=== PATIENT | female | born 2000 | race Caucasian/White ===

== ENCOUNTER 2020-05-02 03:18 | Emergency (ER) | payer OTHER, SELFPAY ==
--- NOTE | ~2020-05-02 | CT_ITS ---
EXAMINATION: CT abdomen pelvis w con DATE: 05/02/2020 04:27 INDICATION: Pelvic pain TECHNIQUE: Computed tomography (CT) of the abdomen and pelvis was performed with 100 cc Omnipaque 350 intravenous contrast. The dose-length product was 220.62 mGy-cm. Automated exposure control and iter ative reconstruction technique were employed. COMPARISON: None. FINDINGS: Lung bases unremarkable. No significant pleural or pericardial effusion. Heart size normal. Subtle areas of hypoperfusion upper pole of the kidneys. There is diffuse thickening of the bladder w all. The liver, spleen, pancreas, adrenal glands are unremarkable. Gallbladder is present. Nonobstructive bowel gas pattern. No free air or free fluid. IMPRESSION: 1. Subtle hypoperfusion of the upper pole of the kidneys, nonspecific although pyelonephritis should be considered in the appropriate clinical setting. 2: Bladder wall thickening which may be due to underdistention or cystitis. Correlate with urinalysi s. Reviewed, dictated and finalized at [facility]. IMPRESSION: 1. Subtle hypoperfusion of the upper pole of the kidneys, nonspecific although pyelonephritis should be considered in the appropriate clinical setting. 2: Bladder wall thickening which may be due to underdistention or cystitis. Co rrelate with urinalysis.
--- NOTE | 2020-05-02 03:22 | ED.FEMALEGU ---
HPI - Female Genitourinary General Chief complaint: ANIMAL SHELTER WORKER Stated complaint: Severe Vaginal Pain Time Seen by Provider: 05/02/20 03:22 History of Present Illness HPI Narrative: Severe vaginal pain for the past 2 hours. Feels like cramping. She reports that she first started having this type of symptom last week. At that time the pain felt like it was on the outside of the vagina and radiated down the inner thigh. She reports that it was similar to pain that she had from pelvic contusions related t horseback riding. She was seen in the ED and placed on flagy. She then saw her OB a few hour later and was started on vaginal valium. After starting this she began having pain in the vagina. She was switched to cyclobenzaprine, which seemed to help, but now she is having this pain, which feels different. Prior to all of this she was having right foot pain, which she was prescribed gabapentin for, but had not started. Related Data Home Medications Medication Instructions Recorded Confirmed diazepam 05/02/20 gabapentin 05/02/20 hydrocodone-acetaminophen 05/02/20 05/02/20 levonorgestrel-ethinyl estrad 05/02/20 metronidazole 05/02/20 Allergies Allergy/AdvReac Type Severity Reaction Status Date / Time metoclopramide Allergy Mild Shakiness Verified 05/02/20 03:30 codeine AdvReac Nausea and Verified 05/02/20 03:34 Vomiting Review of Systems Review of Systems: All systems reviewed & are unremarkable except as noted in HPI and below Constitutional: Constitutional: Denies fever(s) Cardiovascular: Cardiovascular: Denies chest pain Respiratory: Respiratory: Denies dyspnea Genitourinary: Genitourinary: Reports pelvic pain and Denies vaginal discharge Neurologic: Denies dizziness and Denies weakness [facility] Past Medical History Medical History (Updated 05/02/20 @ 06:17 by Alan Brady MD) Brain cancer Exam Const: General: healthy appearing, no acute distress and alert Orientation/consciousness: patient oriented x3 HENMT: Head: normal to inspection Neck: Neck: normal visual inspection and no lymphadenopathy Chest: Chest palpation & inspection: no tenderness Resp: Effort & Inspection: normal respiratory effort Auscultation: clear to auscultation bilaterally, no rales, no rhonchi and no wheezes Cardio: Rate: regular rate Rhythm: regular rhythm Heart sounds: no murmurs GI: Inspection: non-distended GI Palp: Yes Soft to palpation and Yes Tenderness to palpation present (GI) (suprapubic) : External Female Exam: erythema Speculum Exam - Vagina: abnormal vaginal discharge white and caseous and erythematous Speculum Exam - Cervix: normal appearance of the cervix Skin: General skin exam: normal color Neuro: General: patient oriented x3, moves all extremities, no focal motor deficits and CN's II-XI intact bilaterally Cranial nerves: Yes CN's II-XII intact bilaterally Cognition (Neuro): normal cognition Speech: normal speech Extrem: General: no edema Psych: Appearance: well kempt Affect: normal affect Course Vital Signs Vital signs: Vital Signs Temperature 36.6 C 05/02/20 03:23 Pulse Rate 86 05/02/20 03:23 Respiratory Rate 16 05/02/20 03:23 Blood Pressure 120/69 05/02/20 03:23 Pulse Oximetry 98 05/02/20 03:23 Temperature 36.6 C 05/02/20 03:23 Pulse Rate 86 05/02/20 03:23 Respiratory Rate 16 05/02/20 03:23 Blood Pressure 120/69 05/02/20 03:23 Pulse Oximetry 98 05/02/20 03:23 MDM - Female Genitourinary Medical Records Attestation: I reviewed the patient's medical records. Lab Data Attestation: I reviewed the patient's lab results. Result diagrams: 05/02/20 03:52 05/02/20 04:17 Labs: Lab Results 05/02/20 05/02/20 05/02/20 Range/Units 03:52 03:52 03:52 WBC 8.8 (4.5-10.0) K/mm3 RBC 4.20 (4.2-5.4) M/mm3 Hgb 12.9 (12.0-15.0) g/dL Hct 37.9 (37.0-47.0) % MCV 90.2 (80-100) fl MCH 30.7
[2020-05-02 03:23] VITALS: BP 120/69; PULSE 86; RESP 16; TEMP 36.6; O2SAT 98
[2020-05-02 04:00] LABS: Basophils Absolute Auto 0.1 K/mm3 (0.0-0.1); Basophils Percent Auto 0.7 % (0.2-1.2); Eosinophils Absolute Auto 0.1 K/mm3 (0-0.3); Eosinophils Percent Auto 1.1 % (0-4.4); Hematocrit 37.9 % (37.0-47.0); Hemoglobin 12.9 g/dL (12.0-15.0); Immature Granulocyte Absolute 0.01 K/mm3 (0.00-0.031); Immature Granulocyte Percent A 0.1 % (0-0.5); Lymphocytes Absolute Auto 4.34 K/mm3 (0.9-3.2); Lymphocytes Percent Auto 49.4 % (18.3-44.2); Mean Corpuscular Hemoglobin 30.7 pg (26-34); Mean Corpuscular Volume 90.2 fl (80-100); Monocytes Absolute Auto 0.7 K/mm3 (0.1-0.6); Monocytes Percent Auto 8.1 % (2.6-8.5); Neutrophils Absolute Auto 3.6 K/mm3 (1.3-6.7); Neutrophils Percent Auto 40.6 % (45.5-73.1); Platelet Count Result 288 k/mm3 (150-375); Red Cell Distribution Width 12.1 % (11.5-14.5); White Blood Count 8.8 K/mm3 (4.5-10.0)
[2020-05-02 04:20] LABS: Add Urine Microscopic? YES; Appearance Urine Cloudy (Clear); Bacteria Urine Trace /hpf; Bilirubin Urine Negative (Negative); Blood Urine Negative (Negative); Color Urine Yellow (Yellow); Glucose Urine UA Negative (Negative); Ketones Urine Negative (Negative); Leukocyte Esterase Ur 1+ LEU/UL (Negative); Nitrate Urine Negative (Negative); Protein Urine Negative (Negative); Specific Grav Ur 1.016 (1.001-1.035); Squamous Epithelial Cell Urine Moderate /hpf (Few); Urobilinogen Urine Negative mg/dL (<2.0)
[2020-05-02 04:22] LABS: Alanine Aminotransferase 29 U/L (4-35); Albumin Level 3.7 g/dL (3.5-5.1); Alkaline Phosphatase 46 U/L (38-126); Anion Gap 8 mmol/L (8-16); Aspartate Amino Transferase 28 U/L (14-36); Bilirubin,Total 0.3 mg/dL (0.2-1.3); Blood Urea Nitrogen 13 mg/dL (7-17); Calcium 9.2 mg/dL (8.4-10.2); Carbon Dioxide 23 mmol/L (22-30); Chloride 105 mmol/L (98-107); Estimated Glomerular Filt Rate > 60; Glucose 96 mg/dL (65-105); Sodium 136 mmol/L (137-145)
[2020-05-02 04:24] LABS: Estimated Glomerular Filt Rate > 60
[2020-05-02] MEDS: NITROFURANTOIN MONOHYD MACROCR 100 MG CAP PO (06:10)
[2020-05-02 06:24] VITALS: BP 118/58; PULSE 59; RESP 16; TEMP 36.5; O2SAT 98
== END 2020-05-02 06:25 | disposition home or self-care (01) ==
PROVIDERS: Emergency Provider Emergency Medicine
DX: B37.3 Candidiasis of vulva and vagina (principal); N30.00 Acute cystitis without hematuria
CPT/HCPCS: 36415; 74177; 80053; 81001; 81025; 85025; 99284; A9270; Q9967

== ENCOUNTER 2020-08-23 05:16 | Emergency (ER) | payer OTHER, SELFPAY ==
--- NOTE | ~2020-08-23 | CT_ITS ---
EXAMINATION: CT abdomen pelvis w con DATE: 08/23/2020 08:12 INDICATION: Left lower quadrant abdominal pain. Vaginal pain for 2 months. TECHNIQUE: Computed tomography (CT) of the abdomen and pelvis was performed with 100 cc Omnipaque 350 intravenous contrast. Automated exposure control and iterative reconstruction technique were employe d. Exam dose: 188.12 mGy-cm total exam DLP. COMPARISON: 05/02/2020 CT abdomen pelvis FINDINGS: The lower lung zones are clear. Heart size is normal. No pericardial or pleural effusion. The liver, gallbladder, bile ducts, pancreas, pancreatic duct, spleen, and adrenal glands are unremar kable. Stable focal nonenhancement most likely due to scarring in the superomedial aspect of each kidney, al so present on 05/02/2020. No urinary tract calculus or hydroureteronephrosis. The urinary bladder, uterus and adnexal areas are unremarkable. Normal caliber of the abdominal aorta. No intraperitoneal or retroperitoneal or pelvic mass lesion or adenopathy or ascites is detected. There is a prominent amount of fecal material within the colon. No bowel obstruction, bowel wall thic kening, pneumatosis or intraperitoneal free air is detected. Included skeletal structures are unremarkable. 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 Reviewed, dictated and finalized at location [facility]. 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
[2020-08-23 05:21] VITALS: BP 111/52; PULSE 106; RESP 20; TEMP 35.9; O2SAT 100
--- NOTE | 2020-08-23 06:36 | PC.NURSE ---
pt wont let this rn attempt IV in hand or wrist. this rn attempted 20g in RAC, no success.
[2020-08-23 06:51] VITALS: BP 112/80; PULSE 99; RESP 18; O2SAT 99
[2020-08-23 07:27] LABS: Basophils Absolute Auto 0.1 K/mm3 (0.0-0.1); Basophils Percent Auto 0.9 % (0.2-1.2); Eosinophils Absolute Auto 0.2 K/mm3 (0-0.3); Hematocrit 40.4 % (37.0-47.0); Hemoglobin 13.8 g/dL (12.0-15.0); Immature Granulocyte Absolute 0.02 K/mm3 (0.00-0.031); Immature Granulocyte Percent A 0.2 % (0-0.5); Lymphocytes Absolute Auto 3.61 K/mm3 (0.9-3.2); Lymphocytes Percent Auto 44.3 % (18.3-44.2); Mean Corpuscular HGB Conc 34.2 g/dl (32-36); Mean Corpuscular Hemoglobin 30.7 pg (26-34); Mean Platelet Volume 10.1 fl (7.4-10.4); Monocytes Absolute Auto 0.7 K/mm3 (0.1-0.6); Neutrophils Absolute Auto 3.6 K/mm3 (1.3-6.7); Neutrophils Percent Auto 44.6 % (45.5-73.1); Platelet Count Result 294 k/mm3 (150-375); Red Blood Count 4.49 M/mm3 (4.2-5.4); Red Cell Distribution Width 11.3 % (11.5-14.5); White Blood Count 8.1 K/mm3 (4.5-10.0)
[2020-08-23 07:31] LABS: Add Urine Microscopic? YES; Appearance Urine Cloudy (Clear); Bacteria Urine Trace /hpf; Bilirubin Urine Negative (Negative); Blood Urine Negative (Negative); Color Urine Straw (Yellow); Glucose Urine UA Negative (Negative); Ketones Urine Negative (Negative); Leukocyte Esterase Ur 1+ LEU/UL (Negative); Nitrate Urine Negative (Negative); Protein Urine Negative (Negative); RBC Urine 0-2 /hpf (0-2); Specific Grav Ur 1.005 (1.001-1.035); Squamous Epithelial Cell Urine Few /hpf (Few); Urobilinogen Urine Negative mg/dL (<2.0)
[2020-08-23 07:36] LABS: Alanine Aminotransferase 19 U/L (4-35); Albumin Level 3.7 g/dL (3.5-5.1); Alkaline Phosphatase 56 U/L (38-126); Anion Gap 8 mmol/L (8-16); Aspartate Amino Transferase 26 U/L (14-36); Bilirubin,Total 0.3 mg/dL (0.2-1.3); Blood Urea Nitrogen 9 mg/dL (7-17); Calcium 8.4 mg/dL (8.4-10.2); Carbon Dioxide 23 mmol/L (22-30); Chloride 105 mmol/L (98-107); Estimated CRCL calculation 72 ml/min; Estimated Glomerular Filt Rate > 60; Glucose 91 mg/dL (65-105); Lipase 109 U/L (23-300); Potassium 3.7 mmol/L (3.4-5.0); Sodium 136 mmol/L (137-145)
--- NOTE | 2020-08-23 07:41 | ED.FEMALEGU ---
HPI - Female Genitourinary General Chief complaint: Urogenital-Female Stated complaint: VAGINAL PAIN Time Seen by Provider: 08/23/20 07:40 Source: patient and family Mode of arrival: ambulatory Limitations: no limitations History of Present Illness HPI Narrative: 20 years old white female presents with vaginal pain started 2 weeks ago. Got worse last night. Patient was seen at [place] emergency room last night. Patient denies any fever, chills, nausea, vomiting, vaginal bleeding, vaginal discharge, urinary symptoms, vaginal intercourse. Patient reported having similar episodes started December 2019 with a diagnosis of possible pelvic floor disorder, was seen by pelvic floor worker well service, TRANSFORMER INSPECTOR, neurologist, then through pelvic floor physical therapy. In the last few days patient been taking ibuprofen, Emery, Flexeril without any improvement. Currently patient on naproxen, Valium, Emery, gabapentin, Flexeril, amitriptyline. Related Data Home Medications Medication Instructions Recorded Confirmed diazepam 05/02/20 gabapentin 05/02/20 hydrocodone-acetaminophen 05/02/20 05/02/20 levonorgestrel-ethinyl estrad 05/02/20 metronidazole 05/02/20 Allergies Allergy/AdvReac Type Severity Reaction Status Date / Time metoclopramide Allergy Mild Shakiness Verified 05/02/20 03:30 codeine AdvReac Nausea and Verified 05/02/20 03:34 Vomiting Review of Systems Review of Systems: Narrative: CONSTITUTIONAL: Denies fever, chills, or sweats. EYES: Denies visual changes, redness, or discharge. ENT: Denies rhinorrhea, congestion, sore throat, or otalgia. CARDIOVASCULAR: Denies chest pain, palpitations, or edema. RESPIRATORY: Denies cough or dyspnea. GASTROINTESTINAL: Denies abdominal pain, nausea, vomiting, or diarrhea. GENITOURINARY: Denies dysuria or hematuria. SKIN: Denies rash or itching. MUSCULOSKELETAL: Denies back pain, joint pain, or myalgia. NEUROLOGIC: Denies headache, numbness, or weakness. PSYCHIATRIC: Denies anxiety or depression. PMFSH Past Medical History Medical History Brain cancer Exam Narrative: Exam Narrative: General appearance: Well-developed, well-nourished Skin: Normal color Head: Normocephalic, nontraumatic Eyes: Clear conjunctiva ENT: Oropharynx normal, ears normal, nose normal Neck: Supple, nontender Chest and respiratory: Airway patent, no respiratory distress, no accessory muscle use Heart: Regular rate/rhythm Abdomen: Soft, slight suprapubic tenderness, no organomegaly, quiet bowel sounds Vascular: Normal peripheral pulses, normal capillary refill. 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 Patient could not tolerate speculum exam which lasted for few seconds. Course Course Emergency Course: Stable Consultations Consultation #1: Dr. Sebastian. Call office for appointment Date: 08/23/20 Time: 11:23 Vital Signs Vital signs: Vital Signs Temperature 35.9 C L 08/23/20 05:21 Pulse Rate 106 H 08/23/20 05:21 Respiratory Rate 20 08/23/20 05:21 Blood Pressure 111/52 L 08/23/20 05:21 Pulse Oximetry 100 08/23/20 05:21 Temperature 35.9 C L 08/23/20 05:21 Pulse Rate 73 08/23/20 09:25 Respiratory Rate 17 08/23/20 09:25 Blood Pressure 108/63 08/23/20 09:25 Pulse Oximetry 100 08/23/20 09:25 [facility] - Fem
[2020-08-23] MEDS: MORPHINE SULFATE (*CRX) 4 MG/ML INJ IV PUSH (07:45)
[2020-08-23] MEDS: ONDANSETRON INJ 4 MG/2 ML VIAL IV PUSH ×2 (07:45→11:28)
[2020-08-23] MEDS: SODIUM CHLORIDE 0.9% IV 1,000 ML 999 ML IV CONT (07:51)
[2020-08-23] MEDS: KETOROLAC 30 MG/ML VIAL (*BKC) IV PUSH (09:22)
[2020-08-23 09:25] VITALS: BP 108/63; PULSE 73; RESP 17; O2SAT 100
[2020-08-23] MEDS: HYDROmorphone HCL INJ (*CRX) 1 MG/ML SYR 0.5 MG IV PUSH (11:28)
[2020-08-23 11:30] VITALS: BP 128/78; PULSE 78; RESP 18; O2SAT 99
== END 2020-08-23 11:33 | disposition home or self-care (01) ==
PROVIDERS: Emergency Provider Emergency Medicine; PCP Nurse Practitioner Family
DX: R10.2 Pelvic and perineal pain (principal); Z85.841 Personal history of malignant neoplasm of brain
CPT/HCPCS: 36415; 74177; 80053; 81001; 81025; 83690; 85025; 87070; 87086; 87491; 87591; 87808; 96361; 96374; 96375; 96376; 99284; J1170; J1885; J2270; J2405; J7030; Q9967

== ENCOUNTER 2020-08-24 20:15 | Emergency (ER) | payer OTHER, SELFPAY ==
[2020-08-24 20:31] VITALS: BP 112/59; PULSE 110; RESP 16; TEMP 36.5; O2SAT 100
[2020-08-24 20:52] LABS: Basophils Absolute Auto 0.1 K/mm3 (0.0-0.1); Basophils Percent Auto 0.7 % (0.2-1.2); Eosinophils Absolute Auto 0.2 K/mm3 (0-0.3); Eosinophils Percent Auto 1.9 % (0-4.4); Hematocrit 39.3 % (37.0-47.0); Hemoglobin 13.6 g/dL (12.0-15.0); Immature Granulocyte Absolute 0.02 K/mm3 (0.00-0.031); Immature Granulocyte Percent A 0.2 % (0-0.5); Lymphocytes Absolute Auto 4.17 K/mm3 (0.9-3.2); Lymphocytes Percent Auto 50.1 % (18.3-44.2); Mean Corpuscular HGB Conc 34.6 g/dl (32-36); Mean Corpuscular Hemoglobin 31.3 pg (26-34); Mean Corpuscular Volume 90.3 fl (80-100); Mean Platelet Volume 9.7 fl (7.4-10.4); Monocytes Absolute Auto 0.6 K/mm3 (0.1-0.6); Neutrophils Absolute Auto 3.3 K/mm3 (1.3-6.7); Neutrophils Percent Auto 40.1 % (45.5-73.1); Platelet Count Result 301 k/mm3 (150-375); Red Blood Count 4.35 M/mm3 (4.2-5.4); Red Cell Distribution Width 11.3 % (11.5-14.5); White Blood Count 8.3 K/mm3 (4.5-10.0)
[2020-08-24 21:05] LABS: Alanine Aminotransferase 22 U/L (4-35); Albumin Level 4.1 g/dL (3.5-5.1); Alkaline Phosphatase 50 U/L (38-126); Anion Gap 9 mmol/L (8-16); Aspartate Amino Transferase 31 U/L (14-36); Bilirubin,Total 0.3 mg/dL (0.2-1.3); Blood Urea Nitrogen 9 mg/dL (7-17); Calcium 8.9 mg/dL (8.4-10.2); Carbon Dioxide 21 mmol/L (22-30); Chloride 107 mmol/L (98-107); Estimated CRCL calculation 72 ml/min; Estimated Glomerular Filt Rate > 60; Glucose 89 mg/dL (65-105); Lipase 101 U/L (23-300); Potassium 3.7 mmol/L (3.4-5.0); Sodium 137 mmol/L (137-145)
--- NOTE | 2020-08-24 21:28 | ED.ABDPAIN ---
HPI - Abdominal Pain General Chief Complaint: Abdominal Pain Stated Complaint: abd pain Time Seen by Provider: 08/24/20 21:11 Source: patient Mode of arrival: ambulatory Limitations: no limitations History of Present Illness HPI narrative: Patient is a 20-year-old female complaining of lower abdominal pain, 8 out of 10, dull aching, nonradiating started approximately 2 weeks ago. Patient states that she was seen 3 different times in the ER for the same complaint. Patient also states that she has seen her primary care physician which referred her to a truck body builder apprentice, which she has seen and was prescribed intravaginal Valium and ultrasound ordered this Sunday. Patient was seen here yesterday for the same complaint, had labs and CT scan done all were within normal limits. Patient's CT scan of her abdomen and pelvis did not show any acute abdominal process. Patient states that the morphine and Dilaudid worked for her yesterday. Related Data Home Medications Medication Instructions Recorded Confirmed diazepam 05/02/20 gabapentin 05/02/20 hydrocodone-acetaminophen 05/02/20 05/02/20 levonorgestrel-ethinyl estrad 05/02/20 metronidazole 05/02/20 Allergies Allergy/AdvReac Type Severity Reaction Status Date / Time metoclopramide Allergy Mild Shakiness Verified 08/24/20 20:36 codeine AdvReac Nausea and Verified 08/24/20 20:36 Vomiting Review of Systems Review of Systems: All systems reviewed & are unremarkable except as noted in HPI and below Constitutional: Constitutional: Denies body ache(s), Denies chills, Denies excessive sweating, Denies fatigue, Denies fever(s), Denies headache(s), Denies lethargy, Denies malaise, Denies weakness and Denies weight loss Eyes: Eyes: Denies blurry vision, Denies change in vision and Denies loss of vision ENT: Denies dizziness, Denies ear discharge, Denies headache(s), Denies lip swelling, Denies epistaxis, Denies nasal congestion, Denies neck pain, Denies throat swelling and Denies tongue swelling Cardiovascular: Cardiovascular: Denies chest pain, Denies chest pain at rest, Denies chest pain with activity, Denies diaphoresis, Denies rapid heart rate, Denies edema, Denies irregular heart rhythm, Denies lightheadedness, Denies palpitations, Denies dyspnea and Denies dyspnea on exertion Respiratory: Respiratory: Denies chest congestion, Denies cough, Denies hemoptysis, Denies dyspnea and Denies dyspnea on exertion Gastrointestinal: Gastrointestinal: Denies melena, Denies hematochezia, Denies diarrhea, Denies nausea, Denies vomiting and Denies hematemesis Musculoskeletal: Musculoskeletal: Denies abnormal gait, Denies deformity, Denies joint swelling, Denies limited range of motion, Denies neck pain and Denies numbness Neurologic: Denies Abnormal speech present, Denies abnormal gait, Denies confusion, Denies dizziness, Denies headache(s), Denies focal weakness, Denies loss of vision, Denies numbness, Denies Other visual disturbances, Denies Sensory deficit (Neuro) and Denies weakness Psychiatric: Psychiatric: Denies confusion, Denies depression, Denies auditory hallucinations, Denies homicidal ideation and Denies suicidal ideation Endocrine: Endocrine: Denies cold intolerance, Denies excessive sweating, Denies fatigue, Denies heat intolerance and Denies palpitations Hematologic/Lymphatic: Hematologic/Lymphatic: Denies easy bleeding and Denies easy bruising Allergic/Immunologic: Allergic/Immunologic: Denies lip swelling, Denies throat swelling and Denies tongue swelling PMFSH Past Medical History Medical History Brain cancer Exam Const: General: cooperative, healthy appearing, comfortable, no acute distress, well developed, alert and awake; No confusion Orientation/consciousness: oriented to person, oriented to place, oriented to time, patient oriented x3 and No confusion Limitations: no limitations HENMT: Head: normal to ins
[2020-08-24 21:40] LABS: Add Urine Microscopic? YES; Appearance Urine Clear (Clear); Bacteria Urine 1+ /hpf; Bilirubin Urine Negative (Negative); Blood Urine Negative (Negative); Color Urine Yellow (Yellow); Glucose Urine UA Negative (Negative); Ketones Urine Negative (Negative); Leukocyte Esterase Ur Trace LEU/UL (Negative); Mucus Urine Rare /lpf; Nitrate Urine Negative (Negative); Protein Urine Negative (Negative); RBC Urine 0-2 /hpf (0-2); Specific Grav Ur 1.011 (1.001-1.035); Squamous Epithelial Cell Urine Few /hpf (Few); Urobilinogen Urine Negative mg/dL (<2.0); WBC Urine 0-3 /hpf
[2020-08-24] MEDS: PROMETHAZINE HCL 25 MG/ML AMPUL 12.5 MG IV PUSH (22:33)
[2020-08-24] MEDS: HYDROcodone/acetaminophen (*CRX) 5-325 MG TABLET 1 TAB PO (22:34)
[2020-08-24 23:12] VITALS: BP 105/62; PULSE 74; RESP 18; O2SAT 100
== END 2020-08-24 23:51 | disposition home or self-care (01) ==
PROVIDERS: Emergency Medicine; Emergency Provider Emergency Medicine; PCP Nurse Practitioner Family
DX: R10.32 Left lower quadrant pain (principal); Z85.841 Personal history of malignant neoplasm of brain
CPT/HCPCS: 36415; 80053; 81001; 81025; 83690; 85025; 96374; 99284; A9270; J2550

== ENCOUNTER → 2020-11-30 01:19 | Outpatient (CLI) | payer OTHER, SELFPAY ==
[2020-11-30 18:55] LABS: SARS-CoV-2 RNA PCR Negative
== END ==
PROVIDERS: Visit Provider Obstetrics & Gynecology
DX: Z01.812 Encounter for preprocedural laboratory examination (principal); Z20.822 Contact with and (suspected) exposure to COVID-19
CPT/HCPCS: C9803; U0003; U0005

== ENCOUNTER 2020-12-03 05:51 | Day surgery (SDC) | payer OTHER, SELFPAY ==
[2020-11-25 09:32] VITALS: BMI 23.6
--- NOTE | 2020-11-30 13:06 | P.HP_ITS ---
H&P: HPI History of Present Illness Date/Time: 11/30/20 13:06 20-year-old 0 admitted for diagnostic laparoscopy. This patient has had chronic pain, discomfort, and dyspareunia. She has had pelvic floor issues before in the past as well. She has been taking the pill and this does not seem to help. Pain seems worse in special with bowel movements and around the time of her suspected. . Risks and benefits of this procedure reviewed in full Chief Complaint: pelvic pain and dyspareunia Review of Systems Review of Systems: All systems reviewed & are unremarkable except as noted in HPI and below PMFSH Past Medical History Medical History Brain cancer Social History Social History Smoking status: Never smoker Alcohol intake: never Substance use: never Substance use type: does not use Spiritual care concerns: No Meds Home Medications and Allergies Home Medications Medication Instructions Recorded Confirmed Type hydrocodone-acetaminophen 1 tablet PO Q6H PRN 05/02/20 11/25/20 History levonorgestrel-ethinyl estrad 1 tablet PO HS 05/02/20 11/25/20 History ondansetron HCl [Zofran] 4 mg PO Q8H PRN #10 tablet 08/24/20 11/25/20 Rx tramadol [Ultram] 50 mg PO Q6H PRN #12 tablet 08/24/20 11/25/20 Rx acetaminophen 1,000 mg PO Q6H PRN 11/25/20 11/25/20 History cyclobenzaprine 10 mg PO HS PRN 11/25/20 11/25/20 History docusate sodium [Colace] 100 mg PO BID 11/25/20 11/25/20 History ibuprofen 600 mg PO Q6H PRN 11/25/20 11/25/20 History polyethylene glycol 3350 [Miralax] 17 g PO DAILY 11/25/20 11/25/20 History pregabalin 75 mg PO BID 11/25/20 11/25/20 History Allergies Allergy/AdvReac Type Severity Reaction Status Date / Time metoclopramide Allergy Mild Shakiness Verified 11/25/20 09:27 codeine AdvReac Nausea and Verified 11/25/20 09:27 Vomiting Exam Const: General: no acute distress Eyes: General: appearance normal, both eyes and all related structures Neck: Neck: supple and no JVD Thyroid: thyroid normal Resp: Effort & Inspection: normal respiratory effort Auscultation: clear to auscultation bilaterally Cardio: Rate: regular rate Rhythm: regular rhythm GI: Inspection: non-distended GI Palp: Yes Soft to palpation, No Tenderness to palpation present (GI) and No Guarding due to palpation present (GI) A uscultation: normal bowel sounds : General: Yes bladder normal to palpation External Female Exam: normal external appearance Speculum Exam - Vagina: normal appearance of the vagina Speculum Exam - Cervix: Cervical os closed Bimanual exam- vagina & uterus: Cervical tenderness present and Uterine tenderness Bimanual Exam- Adnexa, other: tender bilaterally Skin: General skin exam: no rashes or lesions noted Extrem: General: normal to inspection and no edema Psych: Mental Status: mental status grossly normal Affect: normal affect Assessment and Plan Additional Plan impression: Pelvic pain Plan: Diagnostic laparoscopy
[2020-12-03] VITALS (10 sets, daily range): BP systolic 99–119; BP diastolic 58–72; PULSE 56–86; RESP 12–20; TEMP 36–36.3; O2SAT 95–100
--- NOTE | 2020-12-03 06:01 | WPDHPUPDATE1 ---
History and Physical Update Update Date/Time: 12/03/20 06:01 History and Physical has been reviewed, including an updated exam of the patient. There are NO changes in the patient's condition. Risks, benefits, and alternatives have been discussed and questions answered. Patient agrees to proceed with procedure.
[2020-12-03] MEDS: ACETAMINOPHEN 500 MG TABLET 1000 MG PO (11:16)
[2020-12-03] MEDS: LACTATED RINGERS 1,000 ML 30 ML IV CONT ×2 (11:30→13:55)
[2020-12-03] MEDS: KETOROLAC 15 MG/ML VIAL (*BKC) IV PUSH (11:35)
--- NOTE | 2020-12-03 11:38 | WPDANESEPPF ---
Anes - Initial Pre Proc Eval Procedure: Operation Date: 12/03/20 13:00 Proposed Procedures p Diagnostic Laparoscopy - Shady Moore MD Date/Time: 12/03/20 11:38 Surgeon: Shady Moore MD Pre Op Diagnosis: Pelvic Pain Patient Data Age: 20 Gender: F Height: 1.55 m Weight: 56.7 kg Allergies Allergy/AdvReac Type Severity Reaction Status Date / Time metoclopramide AdvReac Intermediate SEVERE Verified 12/03/20 11:07 ANXIETY/MILD PANIC ATTACKS codeine AdvReac Mild NAUSEA/DIZZ Verified 12/03/20 11:07 INESS/ANXIE TY Home Medications Medication Instructions Recorded Confirmed Type hydrocodone-acetaminophen 1 tablet PO Q6H PRN 05/02/20 12/03/20 History levonorgestrel-ethinyl estrad 1 tablet PO HS 05/02/20 12/03/20 History ondansetron HCl [Zofran] 4 mg PO Q8H PRN #10 tablet 08/24/20 12/03/20 Rx tramadol [Ultram] 50 mg PO Q6H PRN #12 tablet 08/24/20 12/03/20 Rx acetaminophen 1,000 mg PO Q6H PRN 11/25/20 12/03/20 History cyclobenzaprine 10 mg PO HS PRN 11/25/20 12/03/20 History docusate sodium [Colace] 100 mg PO BID 11/25/20 12/03/20 History ibuprofen 600 mg PO Q6H PRN 11/25/20 12/03/20 History polyethylene glycol 3350 [Miralax] 17 g PO DAILY 11/25/20 12/03/20 History pregabalin 75 mg PO BID 11/25/20 12/03/20 History hydrocodone-acetaminophen 1 tablet PO Q4H PRN #30 tablet 12/03/20 Rx Patient hx anesthesia problems: post op nausea/vomiting Family hx anesthesia problems: none PMFSH Past Medical History Medical History (Updated 12/03/20 @ 06:02 by Shady Moore MD) Anxiety Brain cancer meduloblastoma age 5 Depression PONV (postoperative nausea and vomiting) Surgical History Surgical History (Updated 12/02/20 @ 12:07 by Jaspreet Pearson DO) History of tonsillectomy Social History Social History Smoking status: Never smoker Alcohol intake: never Substance use: never Substance use type: does not use Living arrangements: with family Spiritual care concerns: No Anes - Eval Final PreProcedure Day of Procedure 12/03/20 11:38 Patient weight: normal Heart: regular rate and rhythm Lungs: clear to auscultation and normal air movement Airway: Mallampati scale class II Neurological: alert and oriented Last oral intake: >/= 8 hours ASA classification: II Emergent: no Anesthetic plan: proceed Anesthesia type and monitoring: general ETT and standard monitoring Informed Consent: The patient's anesthetic plan and its attendant risks and benefits were discussed with the patient/family/POA. Questions were solicited and answers provided to the satisfaction of the patient/family/POA.
[2020-12-03] MEDS: FAMOTIDINE 20 MG/2 ML VIAL IV PUSH (12:05)
[2020-12-03] MEDS: SCOPOLAMINE 1.5 MG PATCH TRANSDERM (12:05)
--- NOTE | 2020-12-03 13:31 | PM.PROC ---
Procedure Note - Detailed Date of procedure: 12/03/20 Pre-op diagnosis: Pelvic Pain Surgeon: Shady Moore MD Postop diagnosis: Pelvic pain/left para ovarian cyst Procedure: Laparoscopy/removal of left paraovarian cyst/lysis of adhesions Anesthesia: General endotracheal EBL: 5cc Complications: None Findings: Normal-appearing uterus and ovaries bilaterally. Normal-appearing appendix. Normal-appearing liver edge. A torsion of of a left para ovarian cyst. Description of procedure: The patient was prepped and draped in the normal sterile fashion placed in the dorsal lithotomy position. Under excellent general endotracheal anesthesia weighted speculum placed in posterior fornix of vagina. Anterior lip of the cervix grasped with single-tooth tenaculum and a Mccain's cannula inserted in the cervix and then attached to the single-tooth. This was to be used later for uterine manipulation. The bladder emptied of clear urine in the weighted speculum was removed. The gloves were changed. An infraumbilical incision made the Veress needle passed in the abdomen. The abdomen filled with CO2 gas to 15 was mercury. A 5mm trocar advanced in the abdomen under direct visualization assuring no injury. Patient placed in Trendelenburg and a suprapubic incision made. 5mm trocar advanced under direct visualization assuring injury. The above findings were seen a left para ovarian cyst was grasped and to the Zaiz origin near tube and burned and then cut and passed out of the lower site. Adhesions were seen from the colon to the left lateral sidewall and these were sharply dissected until return was noted. No other abnormalities were seen irrigation was undertaken until clear. Photo documentation was undertaken in the lower sites were then removed. The gas removed from the abdomen the incisions closed with 4 Monocryl glue. Patient was awakened and went to recovery in satisfactory condition. All sponge needle and, needle, instrument counts were correct. There were no immediate complications
[2020-12-03] MEDS: fentaNYL CITRATE INJ (*CRX) 100 MCG/2 ML VIAL 25 MCG IV PUSH ×6 (14:20→15:07)
[2020-12-03] MEDS: oxyCODONE HCL (*CRX) 5 MG TAB IR PO (15:37)
--- NOTE | 2020-12-03 16:07 | SUR.PHASEII ---
RN paged Dr. Moore via personal pager to clarify about seeing patient here after surgery or at follow-up visit.
== END 2020-12-03 15:45 | disposition home or self-care (01) ==
PROVIDERS: PCP Family Medicine; Visit Provider Obstetrics & Gynecology
PROC: (CPT 49320; principal; 2020-12-03 13:00)
DX: R10.2 Pelvic and perineal pain (principal); N83.292 Other ovarian cyst, left side; N94.10 Unspecified dyspareunia; Z85.841 Personal history of malignant neoplasm of brain
CPT/HCPCS: 58662; 36415; 86850; 86900; 86901; 88305; A9270; J0330; J1100; J1200; J1885; J2250; J2405; J2704; J2710; J3010; J7120

== ENCOUNTER 2020-12-11 05:37 | Emergency (ER) | payer OTHER, SELFPAY ==
[2020-12-11 05:45] VITALS: BP 115/72; PULSE 103; RESP 16; TEMP 36.2; O2SAT 98
--- NOTE | 2020-12-11 05:53 | ED.ABDPAIN ---
HPI - Abdominal Pain General Chief Complaint: Abdominal Pain <Alan Brady MD - Last Filed: 12/11/20 16:55> Stated Complaint: pelvic pain <Alan Brady MD - Last Filed: 12/11/20 16:55> Time Seen by Provider: 12/11/20 05:53 <Alan Brady MD - Last Filed: 12/11/20 16:55> History of Present Illness HPI narrative: chronic vaginal and perineal pain. recent laparoscopic surgery to try and address this. Since the surgery she has had increased pain. She has been using hydrocodne every 6 hours and continues to have break through pain. At her most recent follow-up visit she was started on Cipro. It is not entirely clear to me what specific infection was being treated. She came in this morning because her pain is increasing, although at the time of my evalution she says that it is tolerable. <Alan Brady MD - Last Filed: 12/11/20 16:55> Related Data Home Medications: Home Medications Medication Instructions Recorded Confirmed hydrocodone-acetaminophen 1 tablet PO Q6H PRN 05/02/20 12/03/20 levonorgestrel-ethinyl estrad 1 tablet PO HS 05/02/20 12/03/20 acetaminophen 1,000 mg PO Q6H PRN 11/25/20 12/03/20 cyclobenzaprine 10 mg PO HS PRN 11/25/20 12/03/20 docusate sodium [Colace] 100 mg PO BID 11/25/20 12/03/20 ibuprofen 600 mg PO Q6H PRN 11/25/20 12/03/20 polyethylene glycol 3350 [Miralax] 17 g PO DAILY 11/25/20 12/03/20 pregabalin 75 mg PO BID 11/25/20 12/03/20 ciprofloxacin HCl 12/11/20 <Alan Brady MD - Last Filed: 12/11/20 16:55> Allergies/Adverse Reactions: Allergies Allergy/AdvReac Type Severity Reaction Status Date / Time metoclopramide AdvReac Intermediate SEVERE Verified 12/11/20 05:47 ANXIETY/MILD PANIC ATTACKS codeine AdvReac Mild NAUSEA/DIZZ Verified 12/11/20 05:47 INESS/ANXIE TY <Alan Brady MD - Last Filed: 12/11/20 16:55> Review of Systems Review of Systems: All systems reviewed & are unremarkable except as noted in HPI and below <Alan Brady MD - Last Filed: 12/11/20 16:55> Constitutional: Constitutional: Denies chills and Denies fever(s) <Alan Brady MD - Last Filed: 12/11/20 16:55> Cardiovascular: Cardiovascular: Denies chest pain <Alan Brady MD - Last Filed: 12/11/20 16:55> Gastrointestinal: Gastrointestinal: Reports abdominal pain, Reports constipation and Reports nausea <Alan Brady MD - Last Filed: 12/11/20 16:55> Genitourinary: Genitourinary: Denies abnormal vaginal bleeding, Denies hematuria, Denies genital lesions, Reports dysuria, Reports pelvic pain and Denies vaginal discharge <Alan Brady MD - Last Filed: 12/11/20 16:55> Musculoskeletal: Musculoskeletal: Reports no additional musculoskeletal complaints <Alan Brady MD - Last Filed: 12/11/20 16:55> [facility] Past Medical History Medical History: Medical History Anxiety Brain cancer meduloblastoma age 5 Depression PONV (postoperative nausea and vomiting) <Alan Brady MD - Last Filed: 12/11/20 16:55> Surgical History Surgical History: Surgical History History of tonsillectomy <Alan Brady MD - Last Filed: 12/11/20 16:55> Social History Social History: Social History Smoking status: Never smoker Alcohol intake: never Substance use: never Substance use type: does not use Gender identity (if verbalized by the patient): Female Sexual Orientation (if Verbalized by the Patient): Straight or Heterosexual Spiritual care concerns: No <Alan Brady MD - Last Filed: 12/11/20 16:55> Exam Const: General: healthy appearing, no acute distress and alert <Alan Brady MD - Last Filed: 12/11/20 16:55> Orientation/consciousness: patient oriented x3 <Alan Ren
[2020-12-11 06:52] LABS: Basophils Absolute Auto 0.1 K/mm3 (0.0-0.1); Basophils Percent Auto 0.6 % (0.2-1.2); Eosinophils Absolute Auto 0.1 K/mm3 (0-0.3); Eosinophils Percent Auto 1.6 % (0-4.4); Hematocrit 43.5 % (37.0-47.0); Hemoglobin 14.6 g/dL (12.0-15.0); Immature Granulocyte Absolute 0.02 K/mm3 (0.00-0.031); Immature Granulocyte Percent A 0.2 % (0-0.5); Lymphocytes Absolute Auto 3.78 K/mm3 (0.9-3.2); Lymphocytes Percent Auto 46.8 % (18.3-44.2); Mean Corpuscular HGB Conc 33.6 g/dl (32-36); Mean Corpuscular Hemoglobin 30.9 pg (26-34); Mean Corpuscular Volume 92.2 fl (80-100); Mean Platelet Volume 9.5 fl (7.4-10.4); Monocytes Absolute Auto 0.7 K/mm3 (0.1-0.6); Monocytes Percent Auto 8.9 % (2.6-8.5); Neutrophils Absolute Auto 3.4 K/mm3 (1.3-6.7); Neutrophils Percent Auto 41.9 % (45.5-73.1); Platelet Count Result 327 k/mm3 (150-375); Red Blood Count 4.72 M/mm3 (4.2-5.4); Red Cell Distribution Width 12.2 % (11.5-14.5); White Blood Count 8.1 K/mm3 (4.5-10.0)
[2020-12-11 06:59] LABS: Add Urine Microscopic? YES; Appearance Urine Clear (Clear); Bacteria Urine Trace /hpf; Bilirubin Urine Negative (Negative); Blood Urine Negative (Negative); Color Urine Yellow (Yellow); Glucose Urine UA Negative (Negative); Ketones Urine Negative (Negative); Leukocyte Esterase Ur 1+ LEU/UL (Negative); Mucus Urine Rare /lpf; Nitrate Urine Negative (Negative); Protein Urine Negative (Negative); RBC Urine 0-2 /hpf (0-2); Specific Grav Ur 1.014 (1.001-1.035); Squamous Epithelial Cell Urine Moderate /hpf (Few); Urobilinogen Urine Negative mg/dL (<2.0)
[2020-12-11 07:09] LABS: Alanine Aminotransferase 30 U/L (4-35); Albumin Level 4.3 g/dL (3.5-5.1); Alkaline Phosphatase 57 U/L (38-126); Anion Gap 8 mmol/L (8-16); Aspartate Amino Transferase 29 U/L (14-36); Bilirubin,Total 0.2 mg/dL (0.2-1.3); Blood Urea Nitrogen 13 mg/dL (7-17); Calcium 9.3 mg/dL (8.4-10.2); Carbon Dioxide 25 mmol/L (22-30); Chloride 103 mmol/L (98-107); Estimated CRCL calculation 59 ml/min; Estimated Glomerular Filt Rate > 60; Glucose 93 mg/dL (65-105); Lipase 64 U/L (23-300); Potassium 3.7 mmol/L (3.4-5.0); Sodium 136 mmol/L (137-145)
--- NOTE | 2020-12-11 09:11 | PM.GYNPNOP ---
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 No evidence of acute surgical complication. P: Home. Increase Percocet to 7.5/325 mg po q 4 hours (#20) and resume Lyrica at a 150 mg po bid dose. Continue Cipro and Colace, as well as OCP. F/u [address] Jack Gordon as scheduled. Time Spent With Patient Time with patient: 15 - 25 minutes [employer]- PN:Wei Post-Op Subjective Date/time seen: 12/11/20 09:11 20 y/o G0 with pain. She had a diagnostic laparoscopy 8 days ago with removal of a tiny paratubal cyst and some lysis of adhesions. She has a diagnosis of pudendal neuralgia. She was seen in the office and started on Cipro empirically. She has been taking Percocet 5/325 every 3-4 hours and pain has worsened over the last few days. She has been off her Lyrica for 2 weeks. No fevers. Last bm 2 days ago, normal. On an extended cycle OCP. Review of Systems Review of Systems: All systems reviewed & are unremarkable except as noted in HPI and below Exam Const: Orientation/consciousness: patient oriented x3 Other: Well-developed, well-nourished female in no acute distress. Neck: Thyroid: thyroid normal Lymphatic: no lymphadenopathy noted (in neck, axilla or inguinal nodes) Resp: Effort & Inspection: normal respiratory effort Auscultation: clear to auscultation bilaterally Cardio: Rate: regular rate Rhythm: regular rhythm Heart sounds: S1 normal heart sound present and S2 normal heart sound present GI: Other: ABD: Soft, nondistended. Mild tenderness in lower quadrants, but no guarding or rebound tenderness. Incisions are well-healed. No evidence of infection. She indicates pain involving left labium, left buttock, radiating down anterior left thigh. No hepatosplenomegaly. : General: Yes no CVA tenderness Other: Deferred. Back/Spine/Pelvis: Back: no CVA tenderness Skin: General skin exam: normal color and no rashes or lesions noted Neuro: General: patient oriented x3 Extrem: Other: Extremities: nontender with no edema Psych: Mental Status: mental status grossly normal Affect: normal affect [employer] - PN: Obj Data Vital Signs Vital Signs: Vital Signs - 24 hr 12/11/20 05:45 Temperature 36.2 C L Pulse Rate 103 H Respiratory Rate 16 Blood Pressure 115/72 Pulse Oximetry 98 Meds/Results Medications: Active Medications Generic Name Dose Route Start Last Admin Trade Name Derek PRN Reason Stop Dose Admin Oxycodone/Acetaminophen 1.5 tablet 12/11/20 09:05 Oxycodone/Acetaminophen (*Crx) 5-325 Mg Tablet PO 12/11/20 09:06 ONCE STA Labs CBC & Chem 7: 12/11/20 06:43 12/11/20 06:43 Labs: Laboratory Results - last 24 hr 12/11/20 12/11/20 12/11/20 06:43 06:43 06:43 WBC 8.1 RBC 4.72 Hgb 14.6 Hct 43.5 MCV 92.2 MCH 30.9 MCHC 33.6 RDW 12.2 Plt Count 327 MPV 9.5 Immature Gran % (Auto) 0.2 Neut % (Auto) 41.9 L Lymph % (Auto) 46.8 H [place] % (Auto) 8.9 H Eos % (Auto) 1.6 Baso % (Auto) 0.6 Lymph # (Auto) 3.78 H [place] # (Auto) 0.7 H Eos # (Auto) 0.1 Baso # (Auto) 0.1 Abs Immat Gran (auto) 0.02 Absolute Neuts (auto) 3.4 Absolute Nucleated RBC 0.0 Nucleated RBC % 0.0 Sodium 136 L Potassium 3.7 Chloride 103 Carbon Dioxide 25 Anion Gap 8 BUN 13 Creatinine 1.00 Estim Creat Clear Calc 59 Estimated GFR > 60 Glucose 93 Calcium 9.3 Total Bilirubin 0.2 AST 29 ALT 30 Alkaline Phosphatase 57 Total Protein 8.0 Albumin 4.3 Lipase 64 Urine Color Yellow Urine Appearance Clear Urine pH 6.0 Ur Specific [place] 1.014 Urine Protein Negative Urine Glucose (UA) Nega
[2020-12-11] MEDS: oxyCODONE/ACETAMINOPHEN (*CRX) 5-325 MG TABLET 1.5 TABLET PO (09:16)
[2020-12-11 09:18] VITALS: BP 118/74; PULSE 102; RESP 22; O2SAT 100
--- NOTE | 2020-12-11 09:20 | PC.NURSE ---
OBGYN at bedside to discuss dispo with pt and mother. Pt reports 6/10 pelvic pain, x2 rxns sent to pt's home pharmacy
== END 2020-12-11 09:38 | disposition home or self-care (01) ==
PROVIDERS: Emergency Provider Emergency Medicine; PCP Family Medicine
DX: G89.18 Other acute postprocedural pain (principal); M79.2 Neuralgia and neuritis, unspecified; R10.2 Pelvic and perineal pain; Z85.841 Personal history of malignant neoplasm of brain
CPT/HCPCS: 36415; 80053; 81001; 81025; 83690; 85025; 99283; A9270